=== PATIENT | male | born 1945 | race Caucasian/White ===

== ENCOUNTER 2018-07-10 00:41 | Day surgery (SDC) | payer OTHER ==
[2018-07-09 12:26] LABS: BASOPHILS ABSOLUTE AUTO 0.04 K/mm3 (0.00-0.23); BASOPHILS PERCENT AUTO 1 % (0-2); EOSINOPHILS ABSOLUTE AUTO 0.31 K/mm3 (0.00-0.68); EOSINOPHILS PERCENT AUTO 4 % (0-6); Hematocrit 47.4 % (37.0-53.0); Hemoglobin 16.3 g/dL (13.5-17.5); IMMATURE GRAN ABSOLUTE AUTO 0.01 K/mm3 (0.00-0.10); IMMATURE GRAN PERCENT AUTO 0 % (0-1); LYMPHOCYTES ABSOLUTE AUTO 3.98 K/mm3 (0.84-5.20); LYMPHOCYTES PERCENT AUTO 45 % (21-46); MONOCYTES ABSOLUTE AUTO 0.64 K/mm3 (0.16-1.47); MONOCYTES PERCENT AUTO 7 % (4-13); Mean Corpuscular HGB 32.9 pg (26.0-34.0); Mean Corpuscular HGB Conc 34.4 g/dL (31.5-36.5); Mean Corpuscular Volume 96 fL (80-100); NEUTROPHILS ABSOLUTE AUTO 3.82 K/mm3 (1.96-9.15); NEUTROPHILS PERCENT AUTO 43 % (41-73); Platelet Count 277 K/mm3 (150-400); RDW Coefficient Variation 13.1 % (11.7-14.2); RDW Standard Deviation 46.5 fL (35.1-46.3); Red Blood Cell Count 4.96 M/mm3 (4.30-5.90)
[2018-07-09 12:37] LABS: International Normalized Ratio 1.01; Prothrombin Time Results 10.4 Sec (9.7-11.5)
[2018-07-09 13:04] LABS: Anion Gap 9 mmol/L (6-16); Blood Urea Nitrogen 16 mg/dL (8-24); Bun/Creatinine Ratio 13.7 (12.0-20.0); CO2, Blood 25 mmol/L (21-32); Calcium, Blood 8.9 mg/dL (8.5-10.1); Chloride, Blood 108 mmol/L (98-108); Creatinine, Blood 1.17 mg/dL (0.60-1.20); Glomerular Filtration Rate >60 (60-); Glucose, Blood 105 mg/dL (70-99); Potassium, Blood 4.2 mmol/L (3.5-5.5); Sodium, Blood 142 mmol/L (136-145)
[~2018-07-10 00:41] MED LIST: ASPI81CH; ASPI81CH PO; ATOR20; ATOR20 PO; CARV6.25; KAPSPARGO SPRIN25 MG PO; Lisinopril2.5 MG; Lisinopril2.5 MG PO; Nifediac Cc60 MG PO; Pyridium100 MG; Tylenol325 MG; Xalatan2.5 ML BOTHEYES
== END 2018-07-10 11:00 | disposition home or self-care (01) ==
LOC: MHTC 00:41
PROVIDERS: Internal Medicine Cardiovascular Disease
PROC: B211YZZ Fluoroscopy of Multiple Coronary Arteries using Other Contrast (ICD-10-PCS; principal; 2018-07-10)
PROC: 4A023N7 Measurement of Cardiac Sampling and Pressure, Left Heart, Percutaneous Approach (ICD-10-PCS; principal; 2018-07-10)
DX: I25.10 Atherosclerotic heart disease of native coronary artery without angina pectoris (principal); I10 Essential (primary) hypertension; E78.5 Hyperlipidemia, unspecified; J44.9 Chronic obstructive pulmonary disease, unspecified; F17.210 Nicotine dependence, cigarettes, uncomplicated
CPT/HCPCS: 36415; 80048; 85025; 85610; 93458; 99152; 99153; C1769; C1894; J1644; J2250; J3010; J7030; Q9967

== ENCOUNTER 2019-02-15 00:34 | Observation (INO) | payer MEDICARE ==
[~2019-02-15] VITALS: Ht 170.2 cm; Wt 60.9 kg
[2019-02-15] MEDS ORDERED: ELIQUIS5 MG PO (01:04)
--- NOTE | 2019-02-15 06:39 | NUR ---
02/15/19 0640 PT ARRIVED TO FLOOR AT 0513 VIA GUERNEY. ASSISTED TO BED AND ORIENTED TO SURROUNDINGS AND ORDERS INCLUDING NPO. ORAL SWABS AT BEDISDE. PT HAD 50 ML LIGHT BROWN EMESIS SHORTLY AFTER ARRIVING TO ROOM. MEDICATED FOR PAIN PER DEC. AT PRESENT HE IS RESTING IN BED WITH EYES CLOSED. IV FLUIDS AT 150 ML/HOUR.
--- NOTE | 2019-02-15 16:59 | NUR ---
SHIFT SUMMARY PT HAS HAD NO ACUTE CHANGES THIS SHIFT, NO COMPLAINTS OF PAIN OR NAUSEA, PT HAS HAD BM X2 THIS SHIFT AND HAS AMBULATED INDEP IN HALLWAY. PT IS BEDRESTING AT THIS TIME, WILL CONT TO MONITOR UNTIL REPORT GIVEN TO NOC RN.
--- NOTE | 2019-02-16 05:33 | NUR ---
73 YEAR OLD mALE [facility] pt npo FOR POSSIBLE or FOR sbo. BOWEL CARE GIVEN WITH good effect. 3 bms since 2329. large and med x2 liquid light brown stool last time with prior having some formed portions. denies nausea or acute abd pain. Large abd scars hx of bowel perf in past.
--- NOTE | 2019-02-16 11:28 | NUR ---
PT TOLERATING CLEAR LIQUID. PT TOLERATING CLEAR LIQUID. PT GIVEN SALTINES & APPLE SAUCE TO TRY. WILL CONTINUE TO MONITOR.
[2019-02-16 12:48] LABS: Anion Gap 5 mmol/L (6-16); Blood Urea Nitrogen 15 mg/dL (8-24); Bun/Creatinine Ratio 14.3 (12.0-20.0); CO2, Blood 26 mmol/L (21-32); Calcium, Blood 8.3 mg/dL (8.5-10.1); Chloride, Blood 110 mmol/L (98-108); Creatinine, Blood 1.05 mg/dL (0.60-1.20); Glomerular Filtration Rate >60 (60-); Glucose, Blood 128 mg/dL (70-99); Potassium, Blood 3.6 mmol/L (3.5-5.5); Sodium, Blood 141 mmol/L (136-145)
[2019-02-16] MEDS ORDERED: Senna Plus Tab1 EACH PO (15:44)
[2019-02-16] MEDS ORDERED: GAVILAX17 GM PO (15:44)
--- NOTE | 2019-02-16 15:46 | NUR ---
ATTEMPTED TO SCHEDULE A [facility]POINTMENT [facility], PER OFFICE THERE FISH ROE PROCESSOR WILL CALL BACK WITH AN APPOINTMENT. RX FAXED TO [facility] WITH D/Gudelia HEADLEY.
--- NOTE | 2019-02-16 16:21 | NUR ---
PT DISCHARGED PT DISCHARGED AT 1605. PT IN STABLE CONDITION WITH VSS. PT EDUCATED ON DC INSTRUCTIONS & STATED NO FURTHER QUESTIONS. PT IV REMOVED & INTACT. PT WHEELED OUT BY THIS RN & DRIVEN TO [facility] FRONT LOAD OPERATOR CAR BY FRIENDS. DC PACKET SENT WITH PT.
== END 2019-02-16 16:08 | disposition home or self-care (01) ==
LOC: ER 00:34 → MEDS 00:35 → ER 04:07 → MEDS 05:09 → ENPENDDIS 02-16 15:47 → MEDS 02-16 16:08
PROVIDERS: Internal Medicine; ADMIT Hospitalist
DX: K56.609 Unspecified intestinal obstruction, unspecified as to partial versus complete obstruction (principal); I11.0 Hypertensive heart disease with heart failure; I50.22 Chronic systolic (congestive) heart failure; I25.10 Atherosclerotic heart disease of native coronary artery without angina pectoris; F17.200 Nicotine dependence, unspecified, uncomplicated; Z79.899 Other long term (current) drug therapy; Z79.02 Long term (current) use of antithrombotics/antiplatelets
CPT/HCPCS: 36415; 74019; 80048; 99284; G0378; J2405; J3010; J7030

== ENCOUNTER 2019-02-21 22:18 | Emergency (ER) | payer OTHER ==
[~2019-02-21] VITALS: Ht 165.1 cm; Wt 68.0 kg
[~2019-02-21 22:18] MED LIST changes: +ELIQUIS5 MG PO; +GAVILAX17 GM PO; +Senna Plus Tab1 EACH PO
== END 2019-02-22 01:51 | disposition home or self-care (01) ==
LOC: ER 22:18
DX: K56.609 Unspecified intestinal obstruction, unspecified as to partial versus complete obstruction (principal); F17.200 Nicotine dependence, unspecified, uncomplicated; Z95.0 Presence of cardiac pacemaker; Z79.899 Other long term (current) drug therapy

== ENCOUNTER 2019-03-29 15:24 | Inpatient (IN) | payer OTHER, MEDICARE ==
[~2019-03-29] VITALS: Ht 170.2 cm; Wt 62.5 kg
[2019-03-29 15:50] LABS: BASOPHILS ABSOLUTE AUTO 0.03 K/mm3 (0.00-0.23); BASOPHILS PERCENT AUTO 0 % (0-2); EOSINOPHILS ABSOLUTE AUTO 0.12 K/mm3 (0.00-0.68); EOSINOPHILS PERCENT AUTO 1 % (0-6); Hematocrit 41.9 % (37.0-53.0); IMMATURE GRAN ABSOLUTE AUTO 0.28 K/mm3 (0.00-0.10); IMMATURE GRAN PERCENT AUTO 3 % (0-1); LYMPHOCYTES ABSOLUTE AUTO 2.53 K/mm3 (0.84-5.20); LYMPHOCYTES PERCENT AUTO 25 % (21-46); MONOCYTES ABSOLUTE AUTO 0.56 K/mm3 (0.16-1.47); MONOCYTES PERCENT AUTO 6 % (4-13); Mean Corpuscular HGB 32.2 pg (26.0-34.0); Mean Corpuscular HGB Conc 33.4 g/dL (31.5-36.5); Mean Corpuscular Volume 96 fL (80-100); Mean Platelet Volume 10.1 fL (9.1-12.4); NEUTROPHILS ABSOLUTE AUTO 6.72 K/mm3 (1.96-9.15); NEUTROPHILS PERCENT AUTO 66 % (41-73); Platelet Count 257 K/mm3 (150-400); RDW Coefficient Variation 13.9 % (11.7-14.2); RDW Standard Deviation 49.4 fL (35.1-46.3); Red Blood Cell Count 4.35 M/mm3 (4.30-5.90); White Blood Cell Count 10.24 K/mm3 (4.00-11.30)
[2019-03-29 16:07] LABS: Alanine Aminotransfer (ALT/SGP 27 U/L (12-78); Albumin, Blood 3.4 g/dL (3.4-5.0); Albumin/Globulin Ratio 0.8 (0.8-1.8); Alk Phos 102 U/L (50-136); Anion Gap 6 mmol/L (6-16); Aspartate Aminotrans (AST/SGOT 27 U/L (12-37); Bilirubin, Total 0.4 mg/dL (0.1-1.0); Blood Urea Nitrogen 17 mg/dL (8-24); Bun/Creatinine Ratio 13.8 (12.0-20.0); CO2, Blood 25 mmol/L (21-32); Calcium, Blood 8.5 mg/dL (8.5-10.1); Chloride, Blood 107 mmol/L (98-108); Creatinine, Blood 1.23 mg/dL (0.60-1.20); Ethanol (Alcohol), Blood, Med <3 mg/dL; Glomerular Filtration Rate >60 (60-); Glucose, Blood 112 mg/dL (70-99); Potassium, Blood 4.1 mmol/L (3.5-5.5); Sodium, Blood 138 mmol/L (136-145); Total Protein, Blood 7.4 g/dL (6.4-8.2); Troponin I 0.036 ng/mL (0.000-0.040)
[2019-03-29 18:00] LABS: U Amphetamine Screen Not Detected; U Barbituate Screen Not Detected; U Benzodiazapine Screen Not Detected; U Buprenorphine Screen Not Detected; U Cannabinoids Screen DETECTED; U Cocaine Screen Not Detected; U Methadone Screen Not Detected; U Methamphetamine Screen Not Detected; U Opiates Screen Not Detected; U Oxycodone Screen Not Detected; U Phencyclidine Screen Not Detected; U Propoxyphene Screen Not Detected
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
[2019-03-30 03:23] LABS: BASOPHILS ABSOLUTE AUTO 0.02 K/mm3 (0.00-0.23); BASOPHILS PERCENT AUTO 0 % (0-2); EOSINOPHILS ABSOLUTE AUTO 0.03 K/mm3 (0.00-0.68); EOSINOPHILS PERCENT AUTO 0 % (0-6); Hematocrit 44.1 % (37.0-53.0); Hemoglobin 14.4 g/dL (13.5-17.5); IMMATURE GRAN ABSOLUTE AUTO 0.05 K/mm3 (0.00-0.10); IMMATURE GRAN PERCENT AUTO 0 % (0-1); LYMPHOCYTES ABSOLUTE AUTO 1.56 K/mm3 (0.84-5.20); LYMPHOCYTES PERCENT AUTO 12 % (21-46); MONOCYTES ABSOLUTE AUTO 0.97 K/mm3 (0.16-1.47); MONOCYTES PERCENT AUTO 7 % (4-13); Mean Corpuscular HGB 31.9 pg (26.0-34.0); Mean Corpuscular HGB Conc 32.7 g/dL (31.5-36.5); Mean Corpuscular Volume 98 fL (80-100); Mean Platelet Volume 10.2 fL (9.1-12.4); NEUTROPHILS ABSOLUTE AUTO 10.73 K/mm3 (1.96-9.15); NEUTROPHILS PERCENT AUTO 80 % (41-73); Platelet Count 241 K/mm3 (150-400); RDW Coefficient Variation 14.2 % (11.7-14.2); RDW Standard Deviation 51.1 fL (35.1-46.3); Red Blood Cell Count 4.52 M/mm3 (4.30-5.90); White Blood Cell Count 13.36 K/mm3 (4.00-11.30)
[2019-03-30 03:39] LABS: Anion Gap 7 mmol/L (6-16); Blood Urea Nitrogen 17 mg/dL (8-24); Bun/Creatinine Ratio 14.5 (12.0-20.0); CO2, Blood 23 mmol/L (21-32); Calcium, Blood 8.6 mg/dL (8.5-10.1); Chloride, Blood 109 mmol/L (98-108); Creatinine, Blood 1.17 mg/dL (0.60-1.20); Glomerular Filtration Rate >60 (60-); Glucose, Blood 108 mg/dL (70-99); Potassium, Blood 4.4 mmol/L (3.5-5.5); Sodium, Blood 139 mmol/L (136-145)
--- NOTE | 2019-03-30 04:45 | NUR ---
PAIN CONTROL PATIENT HAVING POOR PAIN CONTROL WITH FENTANYL IV. HAVING BETTER PAIN RELIEF WITH DILAUDID. DOCTOR THAD NOTIFIED AND ORDER OBTAINED FOR DILAUDID. ICE PACK ALSO PLACED TO LEFT FLANK/SIDE AREA.
--- NOTE | 2019-03-30 06:00 | NUR ---
SUMMARY PATIENT SLEEPING OFF AND ON T/O NIGHT. C/O PAIN WITH SLIGHT MOVEMENT. MOST OF THE PAIN IS TO HIS LOW BACK, HIPS AND LOW ABD AREA VISUALLY APPEAR UNCHANGED, ABD SOFT BUT GUARDING WITH ANY PALPATION. H&H REMAINS STABLE. LEFT EYE SCLERA REMAINS SWOLLEN AND RED. PATIENT APPEARS TO HAVE BETTER PAIN CONTROL WITH DILAUDID, HAVING A DEEPER COUGH AND MOVING MORE IN BED. OXYGEN AT 2L/NC DUE TO BIOX 89% WHILE PATIENT SLEEPING.
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
--- NOTE | 2019-03-30 07:45 | NUR ---
DR. TORO HERE; SEE ORDERS.
--- NOTE | 2019-03-30 10:10 | NUR ---
DR. CASTRO IN/OUT TO SEE PATIENT. PREVIOUSLY HAD T/C TO RN TO HAVE HER HOLD XARELTO D/T PATIENT HERE LESS THAN 12 HOURS AND NEEDS LONGER OBSERVATION BEFORE RESUMING ANTICOAG. TX. RN T/C TO DR. TORO TO INFORM. HER OF DR. CASTRO'S CHANGES; SHE IS OKAY WITH THIS.
--- NOTE | 2019-03-30 10:15 | NUR ---
CARE MANAGEMENT NURSE, ALICE, SPOKE TO PATIENT TO SEE WHAT NEEDS REQUIRED FOR GOING HOME; SEE HER NOTES.
--- NOTE | 2019-03-30 11:45 | NUR ---
T/C FROM DR. CASTRO TO REQUEST P.T. TO EVAL. AND TX. AND PATIENT MAY BE OOB TOLERATED. ALSO, PATIENT CAN CHANGE TO SURGICAL FLOOR STATUS WITH TELEM.
--- NOTE | 2019-03-30 12:00 | NUR ---
PATIENT TO TRANSFER TO SURGICAL FLOOR, ROOM 232; WILL AWAIT RECEIVING RN TO CALL FOR REPORT.
--- NOTE | 2019-03-30 13:20 | NUR ---
T/C TO RECEIVING RNART; REPORT GIVEN.
--- NOTE | 2019-03-30 13:47 | NUR ---
TRANSFERRED TO SURGICAL FLOOR, ROOM 232, VIA BED; OXYGEN AT 2L/MIN VIA NC. BELONGINGS, MEDS AND CHART SENT WITH PATIENT; ACCOMPANIED BY ASSOCIATE DIRECTOR OF NURSING'S X 2.
--- NOTE | 2019-03-30 14:47 | NUR ---
ASSUMING CARE OF PT. PT RESTING IN BED AT THIS TIME AND REPORTS HE IS "SORE" AND PAINFUL WITH MOVEMENT. LUNGS ARE CLEAR BUT DIMINISHED. ENCOURAGING TO DEEP BREATHE. EDUCATED PT ON THE PLAN TO WORK WITH PHYSICAL THERAPY. PT ORIENTED TO ROOM AND CALL LIGHT. WILL CONT TO MONITOR.
[2019-03-30 16:08] LABS: Hematocrit 44.5 % (37.0-53.0); Hemoglobin 14.7 g/dL (13.5-17.5)
[2019-03-31 04:46] LABS: BASOPHILS ABSOLUTE AUTO 0.03 K/mm3 (0.00-0.23); BASOPHILS PERCENT AUTO 0 % (0-2); EOSINOPHILS PERCENT AUTO 0 % (0-6); Hematocrit 41.3 % (37.0-53.0); Hemoglobin 13.8 g/dL (13.5-17.5); IMMATURE GRAN ABSOLUTE AUTO 0.06 K/mm3 (0.00-0.10); IMMATURE GRAN PERCENT AUTO 0 % (0-1); LYMPHOCYTES ABSOLUTE AUTO 0.85 K/mm3 (0.84-5.20); LYMPHOCYTES PERCENT AUTO 6 % (21-46); MONOCYTES ABSOLUTE AUTO 0.81 K/mm3 (0.16-1.47); MONOCYTES PERCENT AUTO 6 % (4-13); Mean Corpuscular HGB 32.2 pg (26.0-34.0); Mean Corpuscular HGB Conc 33.4 g/dL (31.5-36.5); Mean Corpuscular Volume 96 fL (80-100); Mean Platelet Volume 10.7 fL (9.1-12.4); NEUTROPHILS ABSOLUTE AUTO 13.01 K/mm3 (1.96-9.15); NEUTROPHILS PERCENT AUTO 88 % (41-73); Platelet Count 170 K/mm3 (150-400); RDW Standard Deviation 49.6 fL (35.1-46.3); Red Blood Cell Count 4.29 M/mm3 (4.30-5.90); White Blood Cell Count 14.76 K/mm3 (4.00-11.30)
[2019-03-31 05:14] LABS: Anion Gap 8 mmol/L (6-16); Blood Urea Nitrogen 26 mg/dL (8-24); CO2, Blood 23 mmol/L (21-32); Calcium, Blood 8.7 mg/dL (8.5-10.1); Chloride, Blood 107 mmol/L (98-108); Creatinine, Blood 1.24 mg/dL (0.60-1.20); Glomerular Filtration Rate >60 (60-); Glucose, Blood 129 mg/dL (70-99); Potassium, Blood 4.2 mmol/L (3.5-5.5); Sodium, Blood 138 mmol/L (136-145)
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
--- NOTE | 2019-03-31 07:50 | NUR ---
PT BEING TRANSPORTED TO IMAGING AT THIS TIME FOR CHEST XRAY.
--- NOTE | 2019-03-31 08:29 | NUR ---
DR. WINN UPDATED ON PT STATUS. [facility] STAT ORDER.
[2019-03-31 08:39] LABS: PCO2 Arterial 33.6 mmHg (35-45); PO2 Arterial 48.6 mmHg (80-100); pH Blood Arterial 7.45 (7.35-7.45)
--- NOTE | 2019-03-31 09:18 | NUR ---
AERVO PLACED PER RT. PT SATTING 86-88%. CRITICAL LOW CO2 LEVEL. DR. WINN AT BEDSIDE AND VERBAL ORDER TO TRANSFER TO ICU.
--- NOTE | 2019-03-31 10:03 | NUR ---
PT ADMITTED TO ICU AT 0950 FROM FLOOR FOR ACUTE HYPOXIA REQUIRING BIPAP. DR AWAN CONSULTED AND AT BEDSIDE ON ADMIT. PT SATS 84-86% ON AIRVO 60L PRIOR TO BIPAP. PT C/O PAIN 10/10 TO STERNUM, LOWER BACK, AND LEFT RIB AREA. PT AWAKE AND ALERT. PT 94% ON BIPAP 10/5, FIO2 100%
--- NOTE | 2019-03-31 10:05 | NUR ---
PT TRANSFERRED TO ICU WITH ALL PERSONAL BELONGINGS. REPORT TO MARIA SULLIVAN.
[2019-03-31 11:53] LABS: PCO2 Arterial 35.1 mmHg (35-45); PO2 Arterial 76.8 mmHg (80-100); pH Blood Arterial 7.44 (7.35-7.45)
--- NOTE | 2019-03-31 13:35 | NUR ---
DR CASTRO IN TO SEE PT POST CT OF CHEST AND PELVIS. PT TO BE TRANSFERED TO [facility] AROUND SPINE HAS INCREASED IN SIZE. PT HAS NO NEURO DEFICITS AT THIS TIME. DR CASTRO WOULD LIKE PT TO HAVE SURGICAL INTERVENTION AVAILABLE IF NEEDED. DR AWAN AWARE AND MAY INTUBATE PT FOR SAFETY OF TRANSFER. RT NOTIFIED. PT IS TOLERATING BIPAP WELL; ABG IMPROVED. PT DID HAVE SOME NAUSEA; MEDICATED W ZOFRAN. PT DENIES NAUSEA AT THIS TIME. C/O PAIN ONLY WITH MOVEMENT. PT CALM AND DOZING ON AND OFF. VSS.
--- NOTE | 2019-03-31 15:12 | NUR ---
PT INTUBATED AT 1450 WITH 7.5F TUBE; 24 AT TEETH. NS STARTED AT 125/HR. PROPOFOL AT 60MCG; PT INTUBATED W ETOMIDATE 20MG.
[2019-03-31 15:34] LABS: Source, Urine Catheter
[2019-03-31 15:42] LABS: Bilirubin, Urine Neg (Neg); Blood, Urine 3+ (Neg); Glucose Qualitative, Urine Neg (Neg); Ketones, Urine Neg (Neg); Leukocyte Esterase, Urine 2+ (Neg); Nitrite, Urine Neg (Neg); Protein, Urine 3+ (Neg); Specific Gravity, Urine 1.015 (1.003-1.022); Urobilinogen, Urine NORM (Normal)
[2019-03-31 15:56] LABS: Appearance, Urine Clear (Clear); Color, Urine Yellow (P-Yellow)
[2019-03-31 15:58] LABS: Bacteria Mod /hpf; Squamous Epithelial Cells Not Seen /hpf (Few)
[2019-03-31 15:59] LABS: PCO2 Arterial 35.9 mmHg (35-45); PO2 Arterial 74.2 mmHg (80-100); pH Blood Arterial 7.37 (7.35-7.45)
--- NOTE | 2019-03-31 16:00 | NUR ---
CHIP RN AT [facility] ICU GIVEN REPORT. REACH AT BEDSIDE, GIVEN REPORT. OG AND SEGURA CATH PLACED. PT HYPOTENSIVE PRIOR TO LEAVING WITH REACH; TRANSPORT IN STANDBY UNTIL BP STABLE. 500CC NS BOLUS STARTED PER DR AWAN. PROPOFOL PLACED ON STANDBY, ATIVAN 2MG GIVEN. HEMANT RT TO TRANSPORT PT; PT ON TRANSFER VENT.
--- NOTE | 2019-03-31 18:17 | NUR ---
PICC PLACED FOR PRESSOR D/T HYPOTENSION. LEVOPHED STARTED AT 2MCG, PROPOFOL TITRATED UP TO 30MCG. PT LEFT WITH REACH TEAM AT 1715 WITH BP STABLIZED. CHIP CALLED AGAIN AND GIVEN UPDATE. PT ALSO GIVEN 1 LITER NS BOLUS TOTAL.
== END 2019-03-31 17:15 | disposition short-term general hospital (02) | DRG 564 ==
LOC: ER 15:24 → SURS 15:25 → ICUE 15:25 → ER 15:25 → ICUW 15:25 → ICUE 21:31 → ICUW 21:31 → ICUE 03-30 11:48 → SURS 03-30 14:19 → ICUE 03-30 14:19 → ICUW 03-30 16:38 → SURS 03-31 10:05 → ICUW 03-31 17:15
PROVIDERS: Emergency Medicine; Family Medicine; Hospitalist; Internal Medicine; Internal Medicine Critical Care Medicine; ADMIT Surgery
PROC: 0BH17EZ Insertion of Endotracheal Airway into Trachea, Via Natural or Artificial Opening (ICD-10-PCS; principal; 2019-03-30)
PROC: 5A09357 Assistance with Respiratory Ventilation, Less than 24 Consecutive Hours, Continuous Positive Airway Pressure (ICD-10-PCS; 2019-03-30)
DX: S22.20XA Unspecified fracture of sternum, initial encounter for closed fracture (principal); J96.01 Acute respiratory failure with hypoxia; S32.040A Wedge compression fracture of fourth lumbar vertebra, initial encounter for closed fracture; S22.080A Wedge compression fracture of T11-T12 vertebra, initial encounter for closed fracture; I48.92 Unspecified atrial flutter; I50.22 Chronic systolic (congestive) heart failure; N17.9 Acute kidney failure, unspecified; I13.0 Hypertensive heart and chronic kidney disease with heart failure and stage 1 through stage 4 chronic kidney disease, or unspecified chronic kidney disease; K56.609 Unspecified intestinal obstruction, unspecified as to partial versus complete obstruction; V49.9XXA Car occupant (driver) (passenger) injured in unspecified traffic accident, initial encounter; Y92.410 Unspecified street and highway as the place of occurrence of the external cause; Z79.01 Long term (current) use of anticoagulants; S20.219A Contusion of unspecified front wall of thorax, initial encounter; I25.10 Atherosclerotic heart disease of native coronary artery without angina pectoris; Z95.0 Presence of cardiac pacemaker; N18.3 Chronic kidney disease, stage 3 (moderate); R40.2412 Glasgow coma scale score 13-15, at arrival to emergency department; F17.210 Nicotine dependence, cigarettes, uncomplicated; S22.32XA Fracture of one rib, left side, initial encounter for closed fracture
CPT/HCPCS: 12001; 31500; 36415; 36416; 36569; 36600; 51702; 71045; 71046; 71260; 72125; 74177; 80048; 80053; 81001; 82803; 83690; 83880; 84145; 84484; 85014; 85018; 85025; 86850; 86900; 86901; 87070; 87077; 87086; 87185; 87205; 93005; 93010; 94002; 94640; 94660; 94762; 96361-59; 96374-59; 96375-59; 96376-59; 97162; 97530; 99285-25; C1751; G0480; J0456; J0696; J1170; J2060; J2405; J2704; J3010; J7030; J7040; J7050; J7060; Q9967

== ENCOUNTER 2019-04-22 21:05 | Observation (INO) | payer OTHER ==
[~2019-04-22] VITALS: Ht 170.2 cm; Wt 57.9 kg
[~2019-04-22 21:05] MED LIST changes: +LISI20 PO; -Lisinopril2.5 MG PO
[2019-04-22 21:36] LABS: BASOPHILS ABSOLUTE AUTO 0.04 K/mm3 (0.00-0.23); BASOPHILS PERCENT AUTO 1 % (0-2); EOSINOPHILS ABSOLUTE AUTO 0.29 K/mm3 (0.00-0.68); EOSINOPHILS PERCENT AUTO 3 % (0-6); Hematocrit 39.7 % (37.0-53.0); Hemoglobin 13.3 g/dL (13.5-17.5); IMMATURE GRAN ABSOLUTE AUTO 0.03 K/mm3 (0.00-0.10); IMMATURE GRAN PERCENT AUTO 0 % (0-1); LYMPHOCYTES ABSOLUTE AUTO 2.21 K/mm3 (0.84-5.20); LYMPHOCYTES PERCENT AUTO 26 % (21-46); MONOCYTES ABSOLUTE AUTO 0.62 K/mm3 (0.16-1.47); MONOCYTES PERCENT AUTO 7 % (4-13); Mean Corpuscular HGB 32.4 pg (26.0-34.0); Mean Corpuscular HGB Conc 33.5 g/dL (31.5-36.5); Mean Corpuscular Volume 97 fL (80-100); Mean Platelet Volume 10.5 fL (9.1-12.4); NEUTROPHILS ABSOLUTE AUTO 5.22 K/mm3 (1.96-9.15); NEUTROPHILS PERCENT AUTO 62 % (41-73); Platelet Count 314 K/mm3 (150-400); RDW Coefficient Variation 14.2 % (11.7-14.2); RDW Standard Deviation 50.7 fL (35.1-46.3); White Blood Cell Count 8.41 K/mm3 (4.00-11.30)
[2019-04-22 21:57] LABS: International Normalized Ratio 1.1; Prothrombin Time Results 11.6 Sec (9.7-11.5)
[2019-04-22 22:27] LABS: Source, Urine Clean Catch
[2019-04-22 22:31] LABS: Bilirubin, Urine Neg (Neg); Blood, Urine Neg (Neg); Glucose Qualitative, Urine Neg (Neg); Ketones, Urine Neg (Neg); Leukocyte Esterase, Urine 1+ (Neg); Nitrite, Urine Neg (Neg); Protein, Urine Neg (Neg); Specific Gravity, Urine 1.005 (1.003-1.022); Urobilinogen, Urine NORM (Normal)
[2019-04-22 22:40] LABS: Appearance, Urine Clear (Clear); Color, Urine Yellow (P-Yellow)
[2019-04-22 22:41] LABS: Bacteria Rare /hpf; Red Blood Cells, Urine Not Seen /hpf (0-2); Squamous Epithelial Cells Not Seen /hpf (Few)
[2019-04-22 22:49] LABS: Alanine Aminotransfer (ALT/SGP 9 U/L (12-78); Albumin, Blood 2.8 g/dL (3.4-5.0); Albumin/Globulin Ratio 0.8 (0.8-1.8); Alk Phos 146 U/L (50-136); Anion Gap 8 mmol/L (6-16); Aspartate Aminotrans (AST/SGOT 9 U/L (12-37); Bilirubin, Total 0.3 mg/dL (0.1-1.0); Blood Urea Nitrogen 17 mg/dL (8-24); Bun/Creatinine Ratio 19.2 (12.0-20.0); CO2, Blood 20 mmol/L (21-32); Calcium, Blood 7.1 mg/dL (8.5-10.1); Chloride, Blood 101 mmol/L (98-108); Creatinine, Blood 0.89 mg/dL (0.60-1.20); Ethanol (Alcohol), Blood, Med <3 mg/dL; Globulin, Blood 3.6 g/dL (2.2-4.0); Glomerular Filtration Rate >60 (60-); Glucose, Blood 87 mg/dL (70-99); Magnesium, Blood 1.8 mg/dL (1.6-2.4); Potassium, Blood 3.3 mmol/L (3.5-5.5); Sodium, Blood 129 mmol/L (136-145); Total Protein, Blood 6.4 g/dL (6.4-8.2); Troponin I 0.053 ng/mL (0.000-0.040)
[2019-04-22 22:51] LABS: U Amphetamine Screen Not Detected; U Barbituate Screen Not Detected; U Benzodiazapine Screen Not Detected; U Buprenorphine Screen Not Detected; U Cannabinoids Screen DETECTED; U Cocaine Screen Not Detected; U Methadone Screen Not Detected; U Methamphetamine Screen Not Detected; U Opiates Screen Not Detected; U Oxycodone Screen Not Detected; U Phencyclidine Screen Not Detected; U Propoxyphene Screen Not Detected
--- NOTE | 2019-04-23 01:26 | NUR ---
0055 74 Y/O MALE ADMITTED TO ROOM 343 PER CART FROM ER. PT ALERT AND ORIENTED X 4; ABLE TO MOVE ALL EXTREMITIES, GAG REFLEX INTACT; ABLE TO RECALL RECENT AND PAST EVENTS.
--- NOTE | 2019-04-23 04:33 | NUR ---
SHIFT SUMMARY: 74 Y/O MALE RESTED COMFORTABLY ALL SHIFT WITH NO NEUROLOGICAL DEFICITS NOTED. PT ALERT AND ORIENTED X 4, GOOD GAG REFLEX, BILATERAL HAND CARTOON ARTIST/FOOT PUSH AND PULLS STRONG AND EQUAL; DENIES PAIN OR NAUSEA. PTS BED LOW POSITION, CALL LIGHT AT SIDE.
[2019-04-23 05:07] LABS: Hematocrit 39.2 % (37.0-53.0); Hemoglobin 13.1 g/dL (13.5-17.5); Mean Corpuscular HGB Conc 33.4 g/dL (31.5-36.5); Mean Corpuscular Volume 96 fL (80-100); Mean Platelet Volume 9.6 fL (9.1-12.4); Platelet Count 292 K/mm3 (150-400); RDW Coefficient Variation 14.2 % (11.7-14.2); RDW Standard Deviation 49.8 fL (35.1-46.3); Red Blood Cell Count 4.09 M/mm3 (4.30-5.90); White Blood Cell Count 5.48 K/mm3 (4.00-11.30)
[2019-04-23 05:43] LABS: Troponin I 0.146 ng/mL (0.000-0.040)
[2019-04-23 05:44] LABS: Alanine Aminotransfer (ALT/SGP 16 U/L (12-78); Albumin, Blood 3.1 g/dL (3.4-5.0); Albumin/Globulin Ratio 0.8 (0.8-1.8); Alk Phos 170 U/L (50-136); Anion Gap 5 mmol/L (6-16); Aspartate Aminotrans (AST/SGOT 14 U/L (12-37); Bilirubin, Total 0.4 mg/dL (0.1-1.0); Blood Urea Nitrogen 19 mg/dL (8-24); Bun/Creatinine Ratio 18.1 (12.0-20.0); CO2, Blood 26 mmol/L (21-32); Calcium, Blood 8.6 mg/dL (8.5-10.1); Chloride, Blood 110 mmol/L (98-108); Creatinine, Blood 1.05 mg/dL (0.60-1.20); Globulin, Blood 3.8 g/dL (2.2-4.0); Glomerular Filtration Rate >60 (60-); Glucose, Blood 95 mg/dL (70-99); Potassium, Blood 3.9 mmol/L (3.5-5.5); Total Protein, Blood 6.9 g/dL (6.4-8.2)
[2019-04-23 05:46] LABS: Sodium, Blood 141 mmol/L (136-145)
--- NOTE | 2019-04-23 09:41 | NUR ---
Echocardiogram completed.
[2019-04-23 14:52] LABS: Troponin I 0.168 ng/mL (0.000-0.040)
--- NOTE | 2019-04-23 15:05 | NUR ---
Upon receiving a referral for spiritual care, I found patient lying in bed and alert. Patient openly shares about his long history of medical issues spanning from brain surgeries to heart surgeries to a TIA, Patient is not a gnosticist man at all but is open to prayer. Patient has a good friend network and one of his daughters lives in the area. 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 Patient responded well to companionship, emotional support and prayer. Patient thanked me for the visit
--- NOTE | 2019-04-23 17:21 | NUR ---
PT IS A/OX3, PLEASANT AND COPERATIVE, THE PT IS UP IND IN HIS ROOM , NO NEURO DEFICITS NOTICED , THE PT APPEARS TO BE BREATHING EASILY ON RA, THE PT WAS UP TO THE CHAIR FOR MEALS, THE PT DENIED ANY PAIN T/O THE DAY, CALL LIGHT IN REACH WILL CONTINUE TO MONITOR AND ASSESS FOR CHANGES
--- NOTE | 2019-04-23 21:21 | NUR ---
SPOKE TO ELKIN WILEY REGARDING PT C/O BACK PAIN; PATIINDIRA DECLINES TYLENOL, PT REQUESTING OXICODONE 10 MG. DECLINED THIS BUT RECEIVED CONDITIONAL ORDERS FOR PAIN COVERAGE.
--- NOTE | 2019-04-24 11:22 | NUR ---
Patient is lying in bed and alert. [facility] is already estabished so patient openly shares about his concerns about recovery and fears of continued medical events that may leave him disabled. I listen empathically, point out all that patient has overcome and will continue to overcome, focus patient's attention back on what patient is able to do and abilities patient does have. Patient responds well and shows signs of increased peace.
[2019-04-24] MEDS ORDERED: ELIQUIS2.5 MG PO (12:06)
[2019-04-24] MEDS ORDERED: ASPI81CH PO (12:06)
== END 2019-04-24 13:40 | disposition home or self-care (01) ==
LOC: ER 21:05 → MEDS 21:06 → ER 23:01 → MEDS 23:01 → ENPENDDIS 04-24 10:58 → MEDS 04-24 13:40
PROVIDERS: Emergency Medicine; ADMIT Internal Medicine
DX: G45.9 Transient cerebral ischemic attack, unspecified (principal); I25.10 Atherosclerotic heart disease of native coronary artery without angina pectoris; I11.0 Hypertensive heart disease with heart failure; I50.42 Chronic combined systolic (congestive) and diastolic (congestive) heart failure; F17.210 Nicotine dependence, cigarettes, uncomplicated; I42.9 Cardiomyopathy, unspecified; R77.8 Other specified abnormalities of plasma proteins; Z95.1 Presence of aortocoronary bypass graft; Z95.0 Presence of cardiac pacemaker; Z79.899 Other long term (current) drug therapy
CPT/HCPCS: 36415; 70450; 70496; 70498; 71045; 80053; 81001; 82550; 83735; 84484; 85025; 85027; 85610; 87086; 93005; 93010; 93306; 96372; 97116; 97161; 97165; 97530; 99285-25; A9270; G0378; G0480; J1650; Q9967

== ENCOUNTER 2019-05-31 20:46 | Inpatient (IN) | payer OTHER, MEDICARE ==
[~2019-05-31] VITALS: Ht 175.3 cm; Wt 58.9 kg
[~2019-05-31 20:46] MED LIST changes: +ELIQUIS2.5 MG PO
[2019-05-31 22:10] LABS: BASOPHILS ABSOLUTE AUTO 0.03 K/mm3 (0.00-0.23); BASOPHILS PERCENT AUTO 0 % (0-2); EOSINOPHILS ABSOLUTE AUTO 0.05 K/mm3 (0.00-0.68); EOSINOPHILS PERCENT AUTO 0 % (0-6); Hematocrit 47.6 % (37.0-53.0); Hemoglobin 15.7 g/dL (13.5-17.5); IMMATURE GRAN ABSOLUTE AUTO 0.06 K/mm3 (0.00-0.10); IMMATURE GRAN PERCENT AUTO 1 % (0-1); LYMPHOCYTES ABSOLUTE AUTO 1.36 K/mm3 (0.84-5.20); LYMPHOCYTES PERCENT AUTO 10 % (21-46); MONOCYTES ABSOLUTE AUTO 0.45 K/mm3 (0.16-1.47); MONOCYTES PERCENT AUTO 3 % (4-13); Mean Corpuscular HGB 31.9 pg (26.0-34.0); Mean Corpuscular Volume 97 fL (80-100); Mean Platelet Volume 10.2 fL (9.1-12.4); NEUTROPHILS ABSOLUTE AUTO 11.18 K/mm3 (1.96-9.15); NEUTROPHILS PERCENT AUTO 85 % (41-73); Platelet Count 262 K/mm3 (150-400); RDW Coefficient Variation 13.5 % (11.7-14.2); RDW Standard Deviation 48.9 fL (35.1-46.3); Red Blood Cell Count 4.92 M/mm3 (4.30-5.90); White Blood Cell Count 13.13 K/mm3 (4.00-11.30)
[2019-05-31 22:26] LABS: Alanine Aminotransfer (ALT/SGP 11 U/L (12-78); Albumin, Blood 3.9 g/dL (3.4-5.0); Albumin/Globulin Ratio 0.9 (0.8-1.8); Alk Phos 127 U/L (50-136); Anion Gap 7 mmol/L (6-16); Aspartate Aminotrans (AST/SGOT 19 U/L (12-37); Bilirubin, Total 0.3 mg/dL (0.1-1.0); Blood Urea Nitrogen 18 mg/dL (8-24); CO2, Blood 24 mmol/L (21-32); Calcium, Blood 9.1 mg/dL (8.5-10.1); Chloride, Blood 110 mmol/L (98-108); Creatinine, Blood 1.06 mg/dL (0.60-1.20); Globulin, Blood 4.5 g/dL (2.2-4.0); Glomerular Filtration Rate >60 (60-); Glucose, Blood 170 mg/dL (70-99); Potassium, Blood 3.9 mmol/L (3.5-5.5); Sodium, Blood 141 mmol/L (136-145); Total Protein, Blood 8.4 g/dL (6.4-8.2)
[2019-06-01 04:40] LABS: BASOPHILS ABSOLUTE AUTO 0.02 K/mm3 (0.00-0.23); BASOPHILS PERCENT AUTO 0 % (0-2); EOSINOPHILS PERCENT AUTO 0 % (0-6); Hematocrit 46.3 % (37.0-53.0); Hemoglobin 15.6 g/dL (13.5-17.5); IMMATURE GRAN ABSOLUTE AUTO 0.03 K/mm3 (0.00-0.10); IMMATURE GRAN PERCENT AUTO 0 % (0-1); LYMPHOCYTES ABSOLUTE AUTO 0.97 K/mm3 (0.84-5.20); LYMPHOCYTES PERCENT AUTO 11 % (21-46); MONOCYTES ABSOLUTE AUTO 0.37 K/mm3 (0.16-1.47); MONOCYTES PERCENT AUTO 4 % (4-13); Mean Corpuscular HGB 32.4 pg (26.0-34.0); Mean Corpuscular HGB Conc 33.7 g/dL (31.5-36.5); Mean Corpuscular Volume 96 fL (80-100); Mean Platelet Volume 10.5 fL (9.1-12.4); NEUTROPHILS ABSOLUTE AUTO 7.53 K/mm3 (1.96-9.15); NEUTROPHILS PERCENT AUTO 85 % (41-73); Platelet Count 229 K/mm3 (150-400); RDW Coefficient Variation 13.7 % (11.7-14.2); Red Blood Cell Count 4.81 M/mm3 (4.30-5.90); White Blood Cell Count 8.92 K/mm3 (4.00-11.30)
--- NOTE | 2019-06-01 04:45 | NUR ---
Patient has been resting well since Dilaudid on admission, patient stated relief from acute pain. He remains NPO, lovenox held on admission. He recieved his scheduled lopressor IV and PRN hydralazine (20 mg IV) for hypertension.
[2019-06-01 05:02] LABS: Anion Gap 8 mmol/L (6-16); Blood Urea Nitrogen 15 mg/dL (8-24); Bun/Creatinine Ratio 14.4 (12.0-20.0); CO2, Blood 24 mmol/L (21-32); Calcium, Blood 9.1 mg/dL (8.5-10.1); Chloride, Blood 108 mmol/L (98-108); Creatinine, Blood 1.04 mg/dL (0.60-1.20); Glomerular Filtration Rate >60 (60-); Glucose, Blood 170 mg/dL (70-99); Potassium, Blood 4.4 mmol/L (3.5-5.5); Sodium, Blood 140 mmol/L (136-145)
[2019-06-01 18:48] LABS: International Normalized Ratio 1.04
--- NOTE | 2019-06-01 19:27 | NUR ---
SUMMARY: PT ADMITTED FOR SOB. NO ACUTE CHANGE TODAY, A/O. INTERMITTANT N/V, ZOFRAN GIVEN X2. EMESIS IS BROWN AND LIQUID. PT MEDICATED FOR PAIN X2 AND ABLE TO SLEEP ON AND OFF TROUGHOUT THE DAY. TELE WNL, HYPERTENSIVE AT TIMES, ASYMPTOMATIC, GIVEN IV LOPRESSOR AND PRN HYDRALAZINE. VSS OTHERWISE. NO ACUTE CONCERNS AT THIS TIME. REPORT GIVEN TO CASSIDY SULLIVAN
[2019-06-02 04:32] LABS: BASOPHILS ABSOLUTE AUTO 0.04 K/mm3 (0.00-0.23); BASOPHILS PERCENT AUTO 0 % (0-2); EOSINOPHILS ABSOLUTE AUTO 0.01 K/mm3 (0.00-0.68); EOSINOPHILS PERCENT AUTO 0 % (0-6); Hematocrit 44.5 % (37.0-53.0); Hemoglobin 14.8 g/dL (13.5-17.5); IMMATURE GRAN ABSOLUTE AUTO 0.03 K/mm3 (0.00-0.10); IMMATURE GRAN PERCENT AUTO 0 % (0-1); LYMPHOCYTES ABSOLUTE AUTO 1.06 K/mm3 (0.84-5.20); LYMPHOCYTES PERCENT AUTO 9 % (21-46); MONOCYTES ABSOLUTE AUTO 0.45 K/mm3 (0.16-1.47); MONOCYTES PERCENT AUTO 4 % (4-13); Mean Corpuscular HGB 32.5 pg (26.0-34.0); Mean Corpuscular HGB Conc 33.3 g/dL (31.5-36.5); Mean Corpuscular Volume 98 fL (80-100); Mean Platelet Volume 10.4 fL (9.1-12.4); NEUTROPHILS ABSOLUTE AUTO 10.12 K/mm3 (1.96-9.15); NEUTROPHILS PERCENT AUTO 86 % (41-73); Platelet Count 215 K/mm3 (150-400); RDW Coefficient Variation 13.9 % (11.7-14.2); RDW Standard Deviation 50.4 fL (35.1-46.3); Red Blood Cell Count 4.55 M/mm3 (4.30-5.90); White Blood Cell Count 11.71 K/mm3 (4.00-11.30)
--- NOTE | 2019-06-02 06:29 | NUR ---
SUMMARY HEPARIN INFUSING WITH CURRENT RATE @15.9 ML/HR AND 2 BOLUS DOSES GIVEN PER ORDERS.PT WITH CRAMPING THIS AM. GAVE DILAUDID. OFFERED WARM BLANKET TO ABD FOR COMFORT BUT PT REFUSED.
--- NOTE | 2019-06-02 13:45 | NUR ---
PATIENT TRANSFERED TO [facility] VIA GURNEY. TELEMETRY REMOVED. 3 LEAD TELEMETRY APPLIED UPON ARRIVAL TO [facility].
--- NOTE | 2019-06-02 14:13 | NUR ---
GLASSES TO GO TO PACU DURING SURGERY. PATIENT STATES HIS PARTIAL DENTURES WERE LEFT AT HOME.
--- NOTE | 2019-06-02 14:25 | NUR ---
ASSUMED CARE OF PATIENT FROM GEORGE LUIS RECIEVED REPORT PATIENT ALET ORIENTED AND ADMISSION TAKEN OVER BY RN
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
[2019-06-03 04:27] LABS: BASOPHILS ABSOLUTE AUTO 0.02 K/mm3 (0.00-0.23); BASOPHILS PERCENT AUTO 0 % (0-2); EOSINOPHILS PERCENT AUTO 0 % (0-6); Hematocrit 42.7 % (37.0-53.0); Hemoglobin 14.3 g/dL (13.5-17.5); IMMATURE GRAN ABSOLUTE AUTO 0.07 K/mm3 (0.00-0.10); IMMATURE GRAN PERCENT AUTO 0 % (0-1); LYMPHOCYTES ABSOLUTE AUTO 0.55 K/mm3 (0.84-5.20); LYMPHOCYTES PERCENT AUTO 3 % (21-46); MONOCYTES ABSOLUTE AUTO 0.75 K/mm3 (0.16-1.47); MONOCYTES PERCENT AUTO 5 % (4-13); Mean Corpuscular HGB 32.6 pg (26.0-34.0); Mean Corpuscular HGB Conc 33.5 g/dL (31.5-36.5); Mean Corpuscular Volume 98 fL (80-100); NEUTROPHILS ABSOLUTE AUTO 15.25 K/mm3 (1.96-9.15); NEUTROPHILS PERCENT AUTO 92 % (41-73); Platelet Count 175 K/mm3 (150-400); RDW Standard Deviation 50.9 fL (35.1-46.3); Red Blood Cell Count 4.38 M/mm3 (4.30-5.90); White Blood Cell Count 16.64 K/mm3 (4.00-11.30)
[2019-06-03 04:36] LABS: Bun/Creatinine Ratio 22.2 (12.0-20.0); Calcium, Blood 8.8 mg/dL (8.5-10.1); Creatinine, Blood 1.26 mg/dL (0.60-1.20); Potassium, Blood 4.5 mmol/L (3.5-5.5)
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
--- NOTE | 2019-06-03 16:16 | NUR ---
SHIFT SUMMARY NO ACUTE CHANGES THIS SHIFT. VSS. PT RECEIVING 0.5-1MG IV DILAUDID FOR PAIN PRN. PREVENA WOUND VAC TO ABD REMAINS COMPRESSED AND CDI. PT KRYSTIN CLEAR LIQ DIET. DENIES PASSING FLATUS. PT UP TO CHAIR WITH 1 SBA. USING URINAL TO VOID. USES CALL LIGHT APPROPRIATELY.
--- NOTE | 2019-06-04 04:59 | NUR ---
SHIFT SUMMARY POST OP DAY 2. PATIENT SLEPT MOST OF THE NIGHT, COMPLAINED OF PAIN AROUND 2AM AND RECEIVED MEDICATION. HIS UNINE OUTPUT IS MINIMAL AT 150CC THIS SHIFT. WOUND VAC DRESSING IS CLEAR, NO DRAINAGE COLLECTED IN PROVENA PUMP.
--- NOTE | 2019-06-04 16:34 | NUR ---
SHIFT SUMMARY NO ACUTE CHANGES THIS SHIFT. VSS. PT RECEIVING 2 NORCO FOR PAIN PRN. PREVENA TO MIDLINE ABD REMAINS CDI. PT KRYSTIN FULL LIQ DIET. PT DENIES PASSING FLATUS. USING URINAL TO VOID. UP IN CHAIR FOR MEALS AND PT DID TAKE A FEW STEPS AROUND THE ROOM WITH SBA. USES CALL LIGHT APPROPRIATELY.
--- NOTE | 2019-06-05 14:45 | NUR ---
note NOTIFIED PROVIDER THAT PT REPORTS HE HAS NOT HAD ANY BOWEL MOVEMENT IN SEVERAL DAYS. PROVIDER TO PLACE ORDERS FOR THIS.
--- NOTE | 2019-06-05 18:12 | NUR ---
PT REQ PAIN MEDS 2 TAB NORCO GIVEN HAD SOME FLATUS BUT THEN HAD SEVERE ABD CRAMPS
--- NOTE | 2019-06-05 19:30 | NUR ---
pt had lg bm with a lot of gas pt stated that the pain is getting better
[2019-06-06 04:19] LABS: Anion Gap 6 mmol/L (6-16); Blood Urea Nitrogen 29 mg/dL (8-24); Bun/Creatinine Ratio 26.6 (12.0-20.0); CO2, Blood 25 mmol/L (21-32); Calcium, Blood 8.5 mg/dL (8.5-10.1); Chloride, Blood 110 mmol/L (98-108); Creatinine, Blood 1.09 mg/dL (0.60-1.20); Glomerular Filtration Rate >60 (60-); Glucose, Blood 142 mg/dL (70-99); Potassium, Blood 4.2 mmol/L (3.5-5.5); Sodium, Blood 141 mmol/L (136-145)
--- NOTE | 2019-06-06 06:39 | NUR ---
SUMMARY PT SLEPT WITH NO C/O. ANXIOUS TO GO HOME. HOPING FOR DISCHARGE TODAY.MEDICATED PT X 1 THIS AM FOR HTN. NOTED HE IS NOT ON HIS NIFEDIPINE WHICH HE TAKES AT HOME.WILL REPORT THIS TO DAY RN.
[2019-06-06] MEDS ORDERED: ASPI81CH PO (12:12)
[2019-06-06] MEDS ORDERED: MIRALAX17 GM PO (12:12)
--- NOTE | 2019-06-06 13:34 | NUR ---
DR VENEGAS STATED PT MAY BE DISCHARGED FROM HIS STANDPOINT.
--- NOTE | 2019-06-06 15:12 | NUR ---
discharged REVIEWED DC PAPERWORK. PT VERBALIZED UNDERSTANDING. DC'D POWERGLIDE, CATHETER INTACT. DC'D AND RETURNED TELE MONITOR. PT LEFT UNIT IN WC W/POSSESSIONS AND DC PAPERWORK IN HAND TO MEET RIDE OUTSIDE.
== END 2019-06-06 15:12 | disposition home or self-care (01) | DRG 330 ==
LOC: ER 20:46 → SURS 23:37
PROVIDERS: Emergency Medicine; Hospitalist; Surgery; ADMIT Internal Medicine
PROC: 0DN80ZZ Release Small Intestine, Open Approach (ICD-10-PCS; 2019-06-02)
PROC: 0DT80ZZ Resection of Small Intestine, Open Approach (ICD-10-PCS; principal; 2019-06-02 15:00)
DX: K56.51 Intestinal adhesions [bands], with partial obstruction (principal); I50.22 Chronic systolic (congestive) heart failure; I48.92 Unspecified atrial flutter; I25.10 Atherosclerotic heart disease of native coronary artery without angina pectoris; I11.0 Hypertensive heart disease with heart failure; Z86.73 Personal history of transient ischemic attack (TIA), and cerebral infarction without residual deficits; E78.5 Hyperlipidemia, unspecified; H40.9 Unspecified glaucoma; F17.210 Nicotine dependence, cigarettes, uncomplicated; Z95.1 Presence of aortocoronary bypass graft
CPT/HCPCS: 36415; 74018; 74019; 74177; 80048; 80053; 82947; 83036; 83690; 85025; 85610; 85730; 88307; 96374-59; 96375; 99285-25; A9270-GY; J0360; J1100; J1170; J1644; J1885; J2370; J2405; J2543; J2704; J2710; J3010; J7120; Q9967

== ENCOUNTER 2020-09-28 16:26 | Emergency (ER) | payer OTHER ==
[~2020-09-28] VITALS: Ht 170.2 cm; Wt 62.1 kg
[~2020-09-28 16:26] MED LIST changes: +MIRALAX17 GM PO
[2020-09-28 17:05] LABS: BASOPHILS ABSOLUTE AUTO 0.02 K/mm3 (0.00-0.23); BASOPHILS PERCENT AUTO 0 % (0-2); EOSINOPHILS ABSOLUTE AUTO 0.25 K/mm3 (0.00-0.68); EOSINOPHILS PERCENT AUTO 3 % (0-6); Hematocrit 45.5 % (37.0-53.0); Hemoglobin 15.3 g/dL (13.5-17.5); IMMATURE GRAN ABSOLUTE AUTO 0.02 K/mm3 (0.00-0.10); IMMATURE GRAN PERCENT AUTO 0 % (0-1); LYMPHOCYTES ABSOLUTE AUTO 1.93 K/mm3 (0.84-5.20); LYMPHOCYTES PERCENT AUTO 22 % (21-46); MONOCYTES PERCENT AUTO 9 % (4-13); Mean Corpuscular HGB 33.9 pg (26.0-34.0); Mean Corpuscular HGB Conc 33.6 g/dL (31.5-36.5); Mean Corpuscular Volume 101 fL (80-100); Mean Platelet Volume 10.6 fL (9.1-12.4); NEUTROPHILS ABSOLUTE AUTO 5.63 K/mm3 (1.96-9.15); NEUTROPHILS PERCENT AUTO 65 % (41-73); Platelet Count 227 K/mm3 (150-400); RDW Coefficient Variation 12.8 % (11.7-14.2); Red Blood Cell Count 4.51 M/mm3 (4.30-5.90); White Blood Cell Count 8.65 K/mm3 (4.00-11.30)
[2020-09-28 17:26] LABS: Albumin, Blood 3.8 g/dL (3.4-5.0); Albumin/Globulin Ratio 0.9 (0.8-1.8); Bilirubin, Total 0.4 mg/dL (0.1-1.0); Bun/Creatinine Ratio 26.1 (12.0-20.0); Calcium, Blood 9.6 mg/dL (8.5-10.1); Creatinine, Blood 1.61 mg/dL (0.60-1.20); Globulin, Blood 4.1 g/dL (2.2-4.0); Magnesium, Blood 2.2 mg/dL (1.6-2.4); Potassium, Blood 5.6 mmol/L (3.5-5.5); Total Protein, Blood 7.9 g/dL (6.4-8.2)
[2020-09-28 18:09] LABS: Source, Urine Clean Catch
[2020-09-28 18:15] LABS: Appearance, Urine Clear (Clear); Bilirubin, Urine Neg (Neg); Blood, Urine Neg (Neg); Color, Urine Yellow (P-Yellow); Glucose Qualitative, Urine Neg (Neg); Ketones, Urine Neg (Neg); Leukocyte Esterase, Urine 2+ (Neg); Nitrite, Urine Neg (Neg); Protein, Urine Neg (Neg); Specific Gravity, Urine 1.005 (1.003-1.022); Urobilinogen, Urine NORM (Normal)
[2020-09-28 18:50] LABS: Bacteria Rare /hpf; Red Blood Cells, Urine 0-2 /hpf (0-2); Squamous Epithelial Cells Rare /hpf (Few)
[2020-09-28 20:15] LABS: Bun/Creatinine Ratio 28.4 (12.0-20.0); Creatinine, Blood 1.41 mg/dL (0.60-1.20); Potassium, Blood 5.2 mmol/L (3.5-5.5)
== END 2020-09-28 20:53 | disposition home or self-care (01) ==
LOC: ER 16:26
PROVIDERS: Physician Assistant
DX: N17.9 Acute kidney failure, unspecified (principal); E87.5 Hyperkalemia; I10 Essential (primary) hypertension; I25.810 Atherosclerosis of coronary artery bypass graft(s) without angina pectoris; E78.5 Hyperlipidemia, unspecified; F17.200 Nicotine dependence, unspecified, uncomplicated; Z79.01 Long term (current) use of anticoagulants; Z79.899 Other long term (current) drug therapy; Z79.82 Long term (current) use of aspirin; Z86.73 Personal history of transient ischemic attack (TIA), and cerebral infarction without residual deficits; Z95.0 Presence of cardiac pacemaker; Z95.1 Presence of aortocoronary bypass graft
CPT/HCPCS: 36415; 80048; 80053; 81001; 83735; 85025; 87086; 93005; 93010; 99283-25; J7030

== ENCOUNTER 2022-02-06 07:05 | Day surgery (SDC) | payer OTHER ==
[~2022-02-06] VITALS: Ht 170.2 cm; Wt 61.8 kg
[2022-02-06] MEDS ORDERED: CARV6.25 (07:28)
== END 2022-02-06 09:27 | disposition home or self-care (01) ==
LOC: ORSCSDS 07:05
PROVIDERS: Surgery
PROC: 0DBM8ZX Excision of Descending Colon, Via Natural or Artificial Opening Endoscopic, Diagnostic (ICD-10-PCS; principal; 2022-02-06 08:30)
DX: Z12.11 Encounter for screening for malignant neoplasm of colon (principal); Z86.010 Personal history of colon polyps; D12.4 Benign neoplasm of descending colon; I25.10 Atherosclerotic heart disease of native coronary artery without angina pectoris; I10 Essential (primary) hypertension; I25.2 Old myocardial infarction; I50.9 Heart failure, unspecified; I63.9 Cerebral infarction, unspecified; Z95.0 Presence of cardiac pacemaker; I48.91 Unspecified atrial fibrillation; F17.210 Nicotine dependence, cigarettes, uncomplicated; Z79.01 Long term (current) use of anticoagulants; Z79.899 Other long term (current) drug therapy
CPT/HCPCS: 88305; J2370; J2704; J7120